=== PATIENT | male | born 1990 | race Caucasian/White ===

== ENCOUNTER 2018-08-03 12:54 | Emergency (ER) | payer BC ==
--- OUTSIDE RECORDS SUMMARY | 2018-08-03 12:57 | XMS REPORT | CCD ---
:1990 Author Organization [facility] Care Team Providers Name Role Phone Mireille Baarjas Referring Provider Allergies, Adverse Reactions, Alerts Substance Reaction Status NKDA Active Problem List Condition Effective Dates Status Ulcerative colitis Resolved Medications Medication Instructions Start Date End Date Status Remicade 100 mg Substitution Allowed 06/17/2012 Ordered intravenous injection Flagyl 250 mg oral tablet Substitution Allowed 06/17/2012 Ordered Lactated Ringers 500 mL, Rate: 25 ml/hr, 06/17/2012 06/17/2012 Discontinued Injection IV 500 mL Infuse over: 20 hr, Route: IV, Dosing Weight 63.636 kg, Total Volume: 500, Start date: 06/17/12 10:53:00, Duration: 30 day, Stop date: 07/17/12 10:52:00 Vital Signs Most recent to oldest 1 2 3 [Reference Range]: Height 172.72 cm (06/17/2012 10:06:00) Temperature Oral 97.8 DegF [96.4-99.1 DegF] (06/17/2012 10:07:00) Systolic Blood Pressure 102 mmHg 104 mmHg 110 mmHg [90-140 mmHg] (06/17/2012 14:45:00) (06/17/2012 14:30:00) (06/17/2012 14:15: 00) Diastolic Blood Pressure 74 mmHg 61 mmHg 62 mmHg [60-90 mmHg] (06/17/2012 14:45:00) (06/17/2012 14:30:00) (06/17/2012 14:15: 00) Respiratory Rate [14-20 14 BRMIN 14 BRMIN 12 BRMIN BRMIN] (06/17/2012 15:00:00) (06/17/2012 14:45:00) *LOW* (06/17/2012 14:30:00) Peripheral Pulse Rate 71 bpm [60-100 bpm] (06/17/2012 10:07:00) Weight 63.636 kg (06/17/2012 10:06:00) Procedures Procedures Date Related Diagnosis Hospital admission 1 Hospital admission 2 1seaton placement x 22fistula surgery
--- OUTSIDE RECORDS SUMMARY | 2018-08-03 12:57 | XMS REPORT | Continuity of Care Document ---
:1990 Author Organization Interface Problems Problem Status Onset Classification Date Comments Source Date Reported ANORECTAL Active 07/29/19 [facility] ABSCESSCT 19 PELVIS W CONTRAST DX ICD 566. / CPT Active 06/16/20 [facility] 18109 12 ICD9 566 CPT Active 08/09/19 [facility] 28699 26771. 12 ICD9 566 CPT Active 08/09/19 [facility] 98678 58798 12 Ulcerative Resolved Problem 06/19/2012 [facility] colitis Medications Medication Details Route Status Patient Ordering Order Source Instructions Provider Date Lactated 500 mL, Rate: IV No Santamaria Ringers 25 ml/hr, Longer 012 [facility] Injection IV Infuse over: Active 500 mL 20 hr, Route: IV, Dosing Weight 63.636 kg, Total Volume: 500, Start date: 06/17/12 10:53:00, Duration: 30 day, Stop date: 07/17/12 10:52:00 Remicade 100 mg Substitution Active intravenous Allowed [facility] injection Flagyl 250 mg Substitution Active oral tablet Allowed [facility] ondansetron 4 mg, 2 mL, IVP No [facility] Route: IVP, Longer 012 [facility] Drug form: Active INJ, ONCE, PRN Nausea & Vomiting, Start date: 08/15/11 14:50:00 acetaminophen-h 2 tab, Route: PO No [facility] ydrocodone 325 PO, Drug Form: Longer [facility] mg-5 mg oral TAB, Q4H, PRN Active tablet Pain Score 4-6, Start date: 08/15/11 14:50:00, Duration: 30 day, Stop date: 09/14/11 14:49:00 hydromorphone 0.5 mg, 0.25 IVP No Herbert mL, Route: Longer 012 [facility] IVP, Drug Active form: INJ, Q5Min, PRN Pain Score 4-6, Start date: 08/15/11 14:50:00, Duration: 5 doses or times, Stop date: Limited # of times flumazenil 0.2 mg, 2 mL, IVP No [facility] Route: IVP, [address] Drug form: Active INJ, PRN, PRN Other -See Comment, Initial dose, Start date: 08/15/11 14:50:00, Duration: 5 doses or times, Stop date: Limited # of times morphine 2 mg, 0.2 mL, IVP No [facility] Sulfate Route: IVP, [address] Drug form: Active INJ, Q5Min, PRN Pain Score 4-6, Start date: 08/15/11 14:50:00, Duration: 8 doses or times, Stop date: Limited # of times naloxone 0.04 mg, 0.[address] [facility] mL, Route: [address] IVP, Drug Active form: INJ, Q2MIN, PRN Narcotic Reversal, Start date: 08/15/11 14:50:00, Duration: 8 doses or times, Stop date: Limited # of times fentanyl 25 microgram, IVP No [facility] 0.5 mL, Route: [address] [place] [address] IVP, Drug Active form: INJ, Q5Min, PRN Pain Score 4-6, Start date: 08/15/11 14:50:00, Duration: 4 doses or times, Stop date: Limited # of times [place] 5/325 1-2 tabs, PO, PO Active Gale-Ly oral tablet ONCE, PRN, [address] tab, 1, 1, Pain, Substitution Allowed, Maintenance, TAB [place] 5/325 2 tab, Route: PO No Gale-Ly oral tablet PO, Drug Form: Longer [address] TAB, ONCE, PRN Active Pain, Start date: 08/15/11 14:32:00, Stop date: 09/14/11 14:31:00 lidocaine 1% 0.5 mL, Route: SUB-Q No Herbert SUB-Q, ONCALL, [address] Start date: Active 08/15/11 14:00:00, Duration: 1 doses or times Lactated 500 mL, Rate: IV No Gale-Ly Ringers 25 ml/hr, Longer [facility] 012 [facility] Injection IV Infuse over: Active 500 mL 20 hr, Route: IV, Total Volume: 500, Start date: 08/15/11 13:01:00, Duration: 30 day, Stop date: 09/14/11 13:00:00 ibuprofen Substitution No Allowed [facility] Active Vicodin 5/500 1 tab, PO, PO No oral tablet Q4H, PRN, for [facility] 012 [facility] pain, Active Substitution Allowed, Maintenance, TAB Allergies, Adverse Reactions, Alerts Substance Category Reaction Severity Reaction Status Date Comments Source type Reported Immunizations Immunization Date Given Site Status Last Updated Comments Source Results Order Name Results Value Reference Date Interpretation Comments Source Range Abdomen/Pe Abdomen/Pelv Patient Name: SHAVON CASTILLO 07/31 - lvis w IV is w IV - [facility] contrast contrast CT : 1990; Age: 28 [address] y/[address] Male [address] MR: [id number] Read by: Balaji Montoya Dictated Date/time: 08/01/18 15:25 Electronically Signed by: Balaji Montoya 08/01/18 15:41 FINAL REPORT Study: Abdomen/Pelvis w IV contrast CT 07/31/2018 2:07 PM [employer] Ordering Physician: Jeri Shukla MD Comparison: None Clinical Indication: - K61.2 Anorectal abscess, K50.80 Crohn's disease of both small and large intestine without complications TECHNIQUE: Helical imaging was performed diaphragm through the symphysis with multiplanar reformations obtained. IV CONTRAST: 100 cc Omnipaque 300 GI CONTRAST: Omnipaque CT imaging performed at this location utilizes radiation dose optimization techniques which include one or more of the following: -Automated exposure control -Adjustment of the mA and/or kV according to patient size -Use of iterative reconstruction technique CT Radiation Dose DLP 386 mGy-cm FINDINGS: LOWER CHEST: The lung bases are clear. SOLID ORGANS: Smooth contour of the liver. Mild fatty infiltration along the falciform ligament. A linear hypodensity notable liver dome is felt to be related to a diaphragmatic slip. Normal gallbladder . No biliary ductal dilation. Normal pancreas and spleen. No adrenal nodules. Normal kidneys. Specifically, no stones or hydronephrosis. BOWEL: Thickening of the small bowel wall involving the terminal ileum with contrast extending into the wall compatible with ulcerations. There is associated dilation of the distal small bowel which candida sures up to 3.6 cm in diameter compatible with a stricture at the terminal ileum. Mild wall thickening and ulceration is also seen along the cecum. Mild prominence of the wall of the sigmoid colon is felt to be related to underdistention. History anal inflammatory changes, with a hyperdense looped drain in place. No rim-enhancing fluid collection remains. PERITONEUM: No free intraperitoneal fluid or air. RETROPERITONEUM: Mildly prominent reactive lymph nodes throughout the mesentery. Normal aorta and major branches. PELVIS: No pelvic mass. The urinary bladder is normal. MUSCULOSKELETAL: Mild degenerative changes of the spine with multilevel Schmorl's nodes. No significant degenerative changes of the sacroiliac joints. IMPRESSION: 1. Wall thickening and ulceration of the terminal ileum and cecum with ulceration compatible with history of Crohn's disease. 2. Mild dilation of the terminal ileum compatible with stricture formation. 3. 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 No significant rim-enhancing fluid collection remains. SL: WR2-M URINALYSIS UA Nitrite Negative Negative 08/15 Normal [facility] (08/15/2011 11:50:00) URINALYSIS UA 0.2 EU/dL 0.1 - 1.0 08/15 [facility] Urobilinogen [facility] URINALYSIS UA Blood Negative Negative 08/15 Normal [facility] (08/15/2011 11:50:00) URINALYSIS UA Leuk Est Negative Negative 08/15 Normal [facility] (08/15/2011 11:50:00) URINALYSIS UA Bili Negative Negative 08/15 NA [facility] *NA* (08/15/2011 11:50:00) URINALYSIS UA Glucose Negative mg/dL Negative 08/15 Normal [facility] (08/15/2011 11:50:00) URINALYSIS UA Ketones Negative mg/dL Negative 08/15 [facility] *NA* (08/15/2011 11:50:00) URINALYSIS UA pH 7.0 5.0 - 8.0 08/15 Normal [facility] URINALYSIS UA Protein Negative mg/dL Negative 08/15 Normal [facility] (08/15/2011 11:50:00) URINALYSIS UA Spec Grav 1.020 <=1.030 08/15 Normal [facility] URINALYSIS UA Turbidity Clear Clear 08/15 Normal [facility] (08/15/2011 11:50:00) URINALYSIS UA Color Yellow Yellow 08/15 NA [facility] *NA* (08/15/2011 11:50:00) URINALYSIS UA Sq Epi Rare /LPF Few 08/15 Normal [facility] (08/15/2011 11:50:00) URINALYSIS UA RBC 0-2 /HPF 0 - 2 08/15 Normal [facility] (08/15/2011 11:50:00) URINALYSIS UA WBC 0-2 /HPF None Seen 08/15 Normal [facility] (08/15/2011 11:50:00) URINALYSIS Micro? Performed 08/15 Normal [facility] (08/15/2011 11:50:00) HEMATOLOGY PT 13.7 s 12.0 - 08/15 Normal 14.7 [facility] HEMATOLOGY INR 1.05 0.85 - 08/15 Normal 1Interpretive 1. Data: [facility] RECOMMENDED RANGES FOR PROTIME INR: 2.0-3.0 for most medical and surgical thromboemboli c states. 2.5-3.5 for artificial heart valves and recurrent embolism.INR SHOULD BE USED ONLY FOR PATIENTS ON STABLE ANTICOAGULANT THERAPY. HEMATOLOGY MPV 8.9 fL 7.4 - 10.4 08/15 Normal [facility] HEMATOLOGY Platelet 316 K/CMM 133 - 450 08/15 Normal [facility] HEMATOLOGY MCV 90.1 fL 80.0 - 08/15 Normal 94.0 [facility] HEMATOLOGY MCH 30.6 pg 27.0 - 08/15 Normal 31.0 [facility] HEMATOLOGY RDW 11.8 % 11.5 - 08/15 Normal 14.5 [facility] HEMATOLOGY MCHC 33.9 g/dL 32.0 - 08/15 Normal 36.0 [facility] HEMATOLOGY WBC 7.9 K/CMM 3.7 - 10.4 08/15 Normal [facility] HEMATOLOGY Hgb 15.6 g/dL 14.0 - 08/15 Normal 18.0 /2011 [facility] HEMATOLOGY RBC 5.09 M/CMM 4.70 - 02/ Normal 6.10 /2011 [facility] HEMATOLOGY Hct 45.8 % 42.0 - 02/ Normal 54.0 /2011 [facility] HEMATOLOGY Eosinophils 0.1 K/CMM 0.0 - 0.5 02/02 Normal # /2011 [facility] HEMATOLOGY Basophils # 0.0 K/CMM 0.0 - 0.2 02/ Normal /2011 [facility] HEMATOLOGY Monocytes # 0.4 K/CMM 0.0 - 0.8 02/ Normal /2011 [facility] HEMATOLOGY Lymphocytes 1.3 K/CMM 1.0 - 5.5 02/ Normal # /2011 [facility] HEMATOLOGY Segs-Bands # 6.1 K/CMM 1.5 - 8.1 02/ Normal /2011 [facility] HEMATOLOGY Segs 76.9 % 45.0 - 02/ HI 75.0 /2011 [facility] HEMATOLOGY Basophils 0.3 % 0.0 - 1.0 02/ Normal [facility] HEMATOLOGY Eosinophils 1.5 % 0.0 - 4.0 02/ Normal [facility] HEMATOLOGY Lymphocytes 16.0 % 20.0 - 02/ LOW 40.0 /2011 [facility] HEMATOLOGY Monocytes 5.3 % 2.0 - 12.0 02/ Normal [facility] Vital Signs Vital Sign Value Date Comments Source Respitory Rate 14 06/17/2012 [facility] Diastolic (mm Hg) 74 06/17/2012 [facility] Systolic (mm Hg) 102 06/17/2012 [facility] Respitory Rate 14 06/17/2012 [facility] Diastolic (mm Hg) 61 06/17/2012 [facility] Systolic (mm Hg) 104 06/17/2012 [facility] Respitory Rate 12 06/17/2012 [facility] Diastolic (mm Hg) 62 06/17/2012 [facility] Systolic (mm Hg) 110 06/17/2012 [facility] Heart Rate 71 06/17/2012 [facility] Temperature Oral (F) 97.8 F 06/17/2012 [facility] Height 172.72 cm 06/17/2012 [facility] Weight 63.636 06/17/2012 [facility] Systolic (mm Hg) 100 08/15/2011 [facility] Diastolic (mm Hg) 58 08/15/2011 [facility] Diastolic (mm Hg) 49 08/15/2011 [facility] Systolic (mm Hg) 105 08/15/2011 [facility] Diastolic (mm Hg) 69 08/15/2011 [facility] Systolic (mm Hg) 116 08/15/2011 [facility] Respitory Rate 13 08/15/2011 [facility] Respitory Rate 11 08/15/2011 [facility] Heart Rate 69 08/15/2011 [facility] Heart Rate 76 08/15/2011 [facility] Heart Rate 77 08/15/2011 [facility] Temperature Oral (F) 97.9 F 08/15/2011 [facility] Weight 65.909 08/15/2011 [facility] Height 152.40 cm 08/15/2011 [facility] Encounters Location Location Encounter Encounter Reason Attending ADM DC Status Source Details Type Number For Provider Date Date Visit DS [id number] ICD9 ARANZA 08/15 08/15 Active [facility] 566 CPT GALE-LY /2011 [facility] [address] [facility] [address]. DS [id number] ICD ARANZA 06/17 06/17 Active [facility] 566. / GALE-LY /2011 [facility] CPT [facility] [address] Procedures Procedure Code Date Perfomer Comments Source Hospital [id number] 1seanuzhat [facility] admission placement x 2 <sup>1</sup> Hospital [id number] 2fabby [facility] admission surgery <sup>2</sup>
--- OUTSIDE RECORDS SUMMARY | 2018-08-03 12:57 | XMS REPORT | CCD ---
:1990 Author Organization [facility] Care Team Providers Name Role Phone Mireille Barajas Referring Provider Allergies, Adverse Reactions, Alerts Substance Reaction Status NKDA Active Medications Medication Instructions Start Date End Date Status Lactated Ringers Injection 500 mL, Rate: 25 ml/hr, 08/15/2011 08/15/2011 Discontinued IV 500 mL Infuse over: 20 hr, Route: IV, Total Volume: 500, Start date: 08/15/11 13:01:00, Duration: 30 day, Stop date: 09/14/11 13:00:00 lidocaine 1% 0.5 mL, Route: SUB-Q, 08/15/2011 08/15/2011 Canceled ONCALL, Start date: 08/15/11 14:00:00, Duration: 1 doses or times ondansetron 4 mg, 2 mL, Route: IVP, 08/15/2011 08/15/2011 Discontinued Drug form: INJ, ONCE, PRN Nausea & Vomiting, Start date: 08/15/11 14:50:00 acetaminophen-hydrocodone 2 tab, Route: PO, Drug 08/15/2011 08/15/2011 Discontinued 325 mg-5 mg oral tablet Form: TAB, Q4H, PRN Pain Score 4-6, Start date: 08/15/11 14:50:00, Duration: 30 day, Stop date: 09/14/11 14:49:00 acetaminophen-hydrocodone 1 tab, Route: PO, Drug 08/15/2011 08/15/2011 Discontinued 325 mg-5 mg oral tablet Form: TAB, Q4H, PRN Pain Score 1-3, Start date: 08/15/11 14:50:00, Duration: 30 day, Stop date: 09/14/11 14:49:00 hydromorphone 0.5 mg, 0.25 mL, Route: 08/15/2011 08/15/2011 Discontinued IVP, Drug form: INJ, Q5Min, PRN Pain Score 4-6, Start date: 08/15/11 14:50:00, Duration: 5 doses or times, Stop date: Limited # of times flumazenil 0.2 mg, 2 mL, Route: 08/15/2011 08/15/2011 Discontinued IVP, Drug form: INJ, PRN, PRN Other -See Comment, Initial dose, Start date: 08/15/11 14:50:00, Duration: 5 doses or times, Stop date: Limited # of times morphine Sulfate 2 mg, 0.2 mL, Route: 08/15/2011 08/15/2011 Discontinued IVP, Drug form: INJ, Q5Min, PRN Pain Score 4-6, Start date: 08/15/11 14:50:00, Duration: 8 doses or times, Stop date: Limited # of times naloxone 0.04 mg, 0.1 mL, Route: 08/15/2011 08/15/2011 Discontinued IVP, Drug form: INJ, Q2MIN, PRN Narcotic Reversal, Start date: 08/15/11 14:50:00, Duration: 8 doses or times, Stop date: Limited # of times fentanyl 25 microgram, 0.5 mL, 08/15/2011 08/15/2011 Discontinued Route: IVP, Drug form: INJ, Q5Min, PRN Pain Score 4-6, Start date: 08/15/11 14:50:00, Duration: 4 doses or times, Stop date: Limited # of times [place] 5/325 oral tablet 2 tab, Route: PO, Drug 08/15/2011 08/15/2011 Discontinued Form: TAB, ONCE, PRN Pain, Start date: 08/15/11 14:32:00, Stop date: 09/14/11 14:31:00 [place] 5/325 oral tablet 1-2 tabs, PO, ONCE, PRN, 08/15/2011 Ordered 40 tab, 1, 1, Pain, Substitution Allowed, Maintenance, TAB ibuprofen Substitution Allowed 08/15/2011 08/15/2011 Discontinued Vicodin 5/500 oral tablet 1 tab, PO, Q4H, PRN, for 08/15/2011 08/15/2011 Discontinued pain, Substitution Allowed, Maintenance, TAB Vital Signs Most recent to oldest 1 2 3 [Reference Range]: Height 152.40 cm (08/15/2011 10:36:00) Temperature Oral 97.9 DegF [96.4-99.1 DegF] (08/15/2011 11:38:00) Systolic Blood Pressure 100 mmHg 105 mmHg 116 mmHg [90-140 mmHg] (08/15/2011 16:15:00) (08/15/2011 16:00:00) (08/15/2011 15:45: 00) Diastolic Blood Pressure 58 mmHg 49 mmHg 69 mmHg [60-90 mmHg] *LOW* *LOW* (08/15/2011 15:45:00) (08/15/2011 16:15:00) (08/15/2011 16:00:00) Respiratory Rate [14-20 13 BRMIN 11 BRMIN 14 BRMIN BRMIN] *LOW* *LOW* (08/15/2011 15:00:00) (08/15/2011 15:15:00) (08/15/2011 15:00:00) Peripheral Pulse Rate 69 bpm 76 bpm 77 bpm [60-100 bpm] (08/15/2011 15:00:00) (08/15/2011 14:45:00) (08/15/2011 14:30: 00) Weight 65.909 kg (08/15/2011 10:36:00) Results URINALYSIS Most recent to oldest [Reference Range]: 1 UA Turbidity [Clear] Clear (08/15/2011 11:50:00) UA Color [Yellow] Yellow *NA* (08/15/2011 11:50:00) UA pH [5.0-8.0] 7.0 (08/15/2011 11:50:00) UA Spec Grav [<=1.030] 1.020 (08/15/2011 11:50:00) UA Glucose [Negative mg/dL] Negative mg/dL (08/15/2011 11:50:00) UA Blood [Negative] Negative (08/15/2011 11:50:00) UA Ketones [Negative mg/dL] Negative mg/dL *NA* (08/15/2011 11:50:00) UA Protein [Negative mg/dL] Negative mg/dL (08/15/2011 11:50:00) UA Urobilinogen [0.1-1.0 EU/dL] 0.2 EU/dL (08/15/2011 11:50:00) UA Bili [Negative] Negative *NA* (08/15/2011 11:50:00) UA Leuk Est [Negative] Negative (08/15/2011 11:50:00) UA Nitrite [Negative] Negative (08/15/2011 11:50:00) UA WBC [None Seen /HPF] 0-2 /HPF (08/15/2011 11:50:00) UA RBC [0-2 /HPF] 0-2 /HPF (08/15/2011 11:50:00) UA Sq Epi [Few /LPF] Rare /LPF (08/15/2011 11:50:00) Micro? Performed (08/15/2011 11:50:00) HEMATOLOGY Most recent to oldest [Reference Range]: 1 WBC [3.7-10.4 K/CMM] 7.9 K/CMM (08/15/2011 11:25:00) RBC [4.70-6.10 M/CMM] 5.09 M/CMM (08/15/2011 11:25:00) Hgb [14.0-18.0 g/dL] 15.6 g/dL (08/15/2011 11:25:00) Hct [42.0-54.0 %] 45.8 % (08/15/2011 11:25:00) MCV [80.0-94.0 fL] 90.1 fL (08/15/2011 11:25:00) MCH [27.0-31.0 pg] 30.6 pg (08/15/2011:25:00) MCHC [32.0-36.0 g/dL] 33.9 g/dL (08/15/2011 11:25:00) RDW [11.5-14.5 %] 11.8 % (08/15/2011:25:00) Platelet [133-450 K/CMM] 316 K/CMM (08/15/2011 11:25:00) MPV [7.4-10.4 fL] 8.9 fL (08/15/2011 11:25:00) Segs [45.0-75.0 %] 76.9 % *HI* (08/15/2011 11:25:00) Lymphocytes [20.0-40.0 %] 16.0 % *LOW* (08/15/2011 11:25:00) Monocytes [2.0-12.0 %] 5.3 % (08/15/2011 11:25:00) Eosinophils [0.0-4.0 %] 1.5 % (08/15/2011 11:25:00) Basophils [0.0-1.0 %] 0.3 % (08/15/2011 11:25:00) Segs-Bands # [1.5-8.1 K/CMM] 6.1 K/CMM (08/15/2011 11:25:00) Lymphocytes # [1.0-5.5 K/CMM] 1.3 K/CMM (08/15/2011 11:25:00) Monocytes # [0.0-0.8 K/CMM] 0.4 K/CMM (08/15/2011 11:25:00) Eosinophils # [0.0-0.5 K/CMM] 0.1 K/CMM (08/15/2011 11:25:00) Basophils # [0.0-0.2 K/CMM] 0.0 K/CMM (08/15/2011 11:25:00) PT [12.0-14.7 seconds] 13.7 seconds (08/15/2011:25:00) INR [0.85-1.17] 1.05 1 (08/15/2011:25:00) 1Interpretive Data: RECOMMENDED RANGES FOR PROTIME INR: 2.0-3.0 for most medical and surgical thromboembolic states. 2.5-3.5 for artificial heart valves and recurrent embolism.INR SHOULD BE USED ONLY FOR PATIENTS ON STABLE ANTICOAGULANT THERAPY.
--- OUTSIDE RECORDS SUMMARY | 2018-08-03 12:58 | XMS REPORT ---
:1990 [facility] [address] [place] [address] Dr. Pérez [address] [place] [id number] Care Team Providers Name Role Phone Unavailable Unavailable Unavailable Payers Payer Name Policy Type Policy Number Effective Date Expiration Date Problems This patient has no known problems. Allergies, Adverse Reactions, Alerts Allergy Allergy Status Severity Reaction(s) Onset Inactive Treating Comments Name Type Date Date Clinician No Known DA Active U 2018-04 Allergies -10 00:00:0 0 No Known DA Active U 2017-09 Allergies -07 00:00:0 0 Medications This patient has no known medications.
--- NOTE | 2018-08-03 13:23 | RAD REPORT ---
EXAM DESCRIPTION: RAD - Hand Left 3 View - 08/03/2018 1:16 pm CLINICAL HISTORY: laceration Pain and swelling, left fifth finger COMPARISON: No comparisons FINDINGS: Soft tissue laceration is seen involving the fifth finger the level of the PIP joint. Tiny radiopaque foreign body may be present in the superficial palmar soft tissues of the fifth finger.
--- NOTE | 2018-08-03 14:58 | EDPHYS ---
Physician Documentation [facility] Name: Medardo Graham Age: 28 yrs Sex: Male : 1990 Arrival Date: 08/03/2018 Time: 12:57 Bed 30 Private MD: Reynold Hughes E ED Physician Regan Walsh HPI: 08/03 14:49 This 28 yrs old Male presents to ER via Ambulatory with complaints of ma2 Laceration - Finger. 14:49 The patient or guardian reports a laceration, clean, 0.3 cm(s), simple. Onset: The ma2 symptoms/episode began/occurred suddenly, 1 hour(s) ago. Associated signs and symptoms: Pertinent negatives: decreased sensation distally, fever, numbness distally, tingling distally. Severity of symptoms: At their worst the symptoms were moderate, in the emergency department the symptoms are unchanged. accidental laceration to left dorsal aspect of 5th PIP, small superficial laceration, tdap utd . Historical: - Allergies: 12:59 No Known Allergies; sv - PMHx: 12:59 Chron's disease; sv - PSHx: 12:59 Bowel resection; sv - Immunization history:: Flu vaccine is up to date. - Social history:: Smoking status: Patient uses tobacco products, denies chronic smoking, but will smoke occasionally, Patient/guardian denies using alcohol, street drugs, The patient lives with family. - Ebola Screening: : No symptoms or risks identified at this time. - Family history:: not pertinent. ROS: 14:49 Constitutional: Negative for fever, chills, and weight loss, Respiratory: Negative for ma2 shortness of breath, cough, wheezing, and pleuritic chest pain, Abdomen/GI: Negative for abdominal pain, nausea, diarrhea, and constipation. 14:49 Skin: Positive for laceration(s), Negative for burn, diaphoresis, discoloration, rash. 14:49 All other systems are negative. Exam: 14:49 Constitutional: This is a well developed, well nourished patient who is awake, alert, ma2 and in no acute distress. Chest/axilla: Normal chest wall appearance and motion. Nontender with no deformity. No lesions are appreciated. Cardiovascular: Regular rate and rhythm with a normal S1 and S2. No gallops, murmurs, or rubs. Normal PMI, no JVD. No pulse deficits. Respiratory: Lungs have equal breath sounds bilaterally, clear to auscultation and percussion. No rales, rhonchi or wheezes noted. No increased work of breathing, no retractions or nasal flaring. Abdomen/GI: Soft, non-tender, with normal bowel sounds. No distension or tympany. No guarding or rebound. No evidence of tenderness throughout. 14:49 Musculoskeletal/extremity: ROM: intact in all extremities, Circulation is intact in all extremities. Sensation intact. Compartment Syndrome exam of affected extremity: is normal. has laceration 0.3 cm superficial over left fifth PIP dorsal aspect, palmar aspect is wnl.. he is able to extend finger at dip however strength is 4/5, tendon injury vs capsule injury can not be excluded, I advise him to see hand surgeon in 24 hrs . Vital Signs: 12:59 BP 132 / 83; Pulse 80; Resp 18; Temp 98.9; Pulse Ox 99% ; Weight 69.85 kg; Height 5 ft. sv 8 in. (172.72 cm); Pain 2/10; 14:30 BP 102 / 75; Pulse 67; Resp 16; Pulse Ox 100% ; rb1 15:30 BP 112 / 70; Pulse 78; Resp 16; Pulse Ox 99% on R/A; rb1 12:59 Body Mass Index 23.42 (69.85 kg, 172.72 cm) sv MDM: 14:31 Patient medically screened. ma2 14:55 Differential diagnosis: contusion, abrasion, tendon injury. Data reviewed: vital signs, ma2 nurses notes. Counseling: I had a detailed discussion with the patient and/or guardian regarding: the historical points, exam findings, and any diagnostic results supporting the discharge/admit diagnosis, the presence of at least one elevated blood pressure reading (>120/80) during this emergency department visit, the need for outpatient follow up. 15:09 Medical screen evaluation completed. EMTALA emergency medical condition absent. ED ma2 course: Dr. Freed called back and advised to send casimiro to the clinic in 2 days. 08/03 13:00 Order name: Hand Left 3 View XRAY; Complete Time: 14:43 sv 08/03 14:45 Order name: Wound Care: irrigation with NS and iodine and apply steri-strips please; ma2 Complete Time: 15:54 08/03 14:45 Order name: Splint - Finger: splint 5th finger with slight hyperextension at the PIP; ma2 Complete Time: 15:54 Administered Medications: No medications were administered Disposition: 08/03/18 14:57 Discharged to Home. Impression: Laceration of extensor muscle, fascia and tendon of left little finger at wrist and hand level. - Condition is Stable. - Discharge Instructions: Wound Care. - Prescriptions for Tylenol- Codeine #3 300-30 mg Oral Tablet - take 2 tablet by ORAL route every 6 hours As needed; 30 tablet. - Medication Reconciliation Form, Thank You Letter, Antibiotic Education, Prescription Opioid Use form. - Follow up: Private Physician; When: Tomorrow; Reason: Continuance of care. - Notes: see hand surgeon Dr. Wellington Gaston office number [phone], you are scheduled to see him on 08/05/2018 at 2 pm. Signatures: Dispatcher [employer] Silke Cifuentes RN RN Lea Dickson RN RN rb1 Regan Walsh MD MD ma2 Corrections: (The following items were deleted from the chart) 16:02 14:57 08/03/2018 14:57 Discharged to Home. Impression: Laceration of extensor muscle, rb1 fascia and tendon of left little finger at wrist and hand level. Condition is Stable. Forms are Medication Reconciliation Form, Thank You Letter, Antibiotic Education, Prescription Opioid Use. Follow up: Private Physician; When: Tomorrow; Reason: Continuance of care. ma2
--- NOTE | 2018-08-03 14:58 | ER ---
Nurse's Notes [facility] Name: Medardo Graham Age: 28 yrs Sex: Male : 1990 Arrival Date: 08/03/2018 Time: 12:57 Bed 30 Private MD: Reynold Hughes E Diagnosis: Laceration of extensor muscle, fascia and tendon of left little finger at wrist and hand level Presentation: 08/03 12:58 Presenting complaint: Patient states: left 5th digit laceration with a knife. Unable to sv bend at the knuckle. Transition of care: patient was not received from another setting of care. Complicating Factors: There are no complicating factors for this patient. Onset of symptoms was August 03, 2018. Care prior to arrival: None. 12:58 Method Of Arrival: Ambulatory sv 12:58 Acuity: KRYSTAL 3 sv 14:35 Risk Assessment: Do you want to hurt yourself or someone else? Patient reports no rb1 desire to harm self or others. 14:35 Initial Sepsis Screen: Does the patient meet any 2 criteria? No. Patient's initial rb1 sepsis screen is negative. Does the patient have a suspected source of infection? No. Patient's initial sepsis screen is negative. Triage Assessment: 12:58 General: Appears in no apparent distress. comfortable, Behavior is calm, cooperative, sv appropriate for age. Pain: Complains of pain in left little finger Pain currently is 2 out of 10 on a pain scale. Neuro: Level of Consciousness is awake, alert, obeys commands, Oriented to person, place, time, situation, Moves all extremities. Full function Gait is steady. Respiratory: Respiratory effort is even, unlabored, Respiratory pattern is regular, symmetrical. Musculoskeletal: Range of motion: limited in PIP of left little finger. Injury Description: Laceration sustained to dorsal aspect of middle phalanx of left little finger and dorsal aspect of proximal phalanx of left little finger is 0.5 to 2.5 cm long, not bleeding, is bleeding no active bleeding noted. Historical: - Allergies: 12:59 No Known Allergies; sv - PMHx: 12:59 Chron's disease; sv - PSHx: 12:59 Bowel resection; sv - Immunization history:: Flu vaccine is up to date. - Social history:: Smoking status: Patient uses tobacco products, denies chronic smoking, but will smoke occasionally, Patient/guardian denies using alcohol, street drugs, The patient lives with family. - Ebola Screening: : No symptoms or risks identified at this time. - Family history:: not pertinent. Screenin:35 Abuse screen: Denies threats or abuse. Nutritional screening: No deficits noted. rb1 Tuberculosis screening: No symptoms or risk factors identified. Fall Risk None identified. Assessment: 14:35 General: Appears in no apparent distress. comfortable, Behavior is calm, cooperative. rb1 Pain: Complains of pain in dorsal aspect of middle phalanx of left little finger Pain currently is 1 out of 10 on a pain scale. Neuro: Level of Consciousness is awake, alert, obeys commands, Oriented to person, place, time, situation. Cardiovascular: Capillary refill < 3 seconds is brisk in bilateral fingers. Respiratory: Airway is patent Respiratory effort is even, unlabored, Respiratory pattern is regular, symmetrical. GI: No signs and/or symptoms were reported involving the gastrointestinal system. : No signs and/or symptoms were reported regarding the genitourinary system. Derm: Skin is pink, warm \T\ dry. Musculoskeletal: Range of motion: limited in left little finger. Injury Description: Laceration sustained to left little finger is contaminated, was sustained 2-4 hours ago. 15:33 Reassessment: Patient appears in no apparent distress at this time. No changes from rb1 previously documented assessment. Discharge pending due to wound care. Vital Signs: 12:59 BP 132 / 83; Pulse 80; Resp 18; Temp 98.9; Pulse Ox 99% ; Weight 69.85 kg; Height 5 ft. sv 8 in. (172.72 cm); Pain 2/10; 14:30 BP 102 / 75; Pulse 67; Resp 16; Pulse Ox 100% ; rb1 15:30 BP 112 / 70; Pulse 78; Resp 16; Pulse Ox 99% on R/A; rb1 12:59 Body Mass Index 23.42 (69.85 kg, 172.72 cm) sv ED Course: 12:57 Patient arrived in ED. as 12:57 Reynold Hughes MD is Private Physician. as 12:59 Triage completed. sv 13:00 Arm band placed on. sv 13:07 Patient moved to radiology ambulated. jf 13:15 X-ray completed. Patient tolerated procedure well. Patient moved back from radiology. jf 13:18 Hand Left 3 View XRAY In Process Unspecified. EDMS 14:29 Regan Walsh MD is Attending Physician. [facility] 14:35 Lea Miller, RN is Primary Nurse. [facility] 14:35 Patient has correct armband on for positive identification. Bed in low position. Call [facility] light in reach. Side rails up X 1. Pulse ox on. NIBP on. 16:00 No provider procedures requiring assistance completed. Patient did not have IV access [facility] during this emergency room visit. Administered Medications: No medications were administered Outcome: 14:57 Discharge ordered by . [facility] 16:00 Discharged to home ambulatory. [facility] 16:00 Condition: stable 16:00 Discharge instructions given to patient, Instructed on discharge instructions, follow up and referral plans. medication usage, Demonstrated understanding of instructions, follow-up care, medications, Prescriptions given X 1. 16:02 Patient left the ED. [facility] Signatures: Dispatcher [employer] EDOH Silke Dumont RN RN sv Martinez, Amelia as Lea Miller, RN RN [facility] Regan Walsh MD MD [facility] Rick Lemus
== END 2018-08-03 16:02 | disposition home or self-care (01) ==
LOC: ER 12:54
DX: S66.327A Laceration of extensor muscle, fascia and tendon of left little finger at wrist and hand level, initial encounter (principal); W26.0XXA Contact with knife, initial encounter; Y93.9 Activity, unspecified; Y92.9 Unspecified place or not applicable